=== PATIENT | male | born 1970 | race Caucasian/White ===

== ENCOUNTER 2024-07-17 07:59 | Outpatient (RCR) | payer OTHER, SELFPAY ==
--- NOTE | 2024-07-17 09:01 | CTCFLWUP_ITS ---
[facility] [address] [place], [place] [address] FOLLOW-UP NOTE Date: 07/17/2024 MR#: [id number] Name: NAINA SANTIAGO : 1970 Dx: C82.60 Cutaneous follicle center lymphoma, unspecified site Identification. 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 Following surgical excision received postoperation therapy 3000 cGy to the main site with 2000 centig ray boost to the adjacent area. 11/12/2023 PET showed no evidence of interval adenopathy or new suspicious sites. Recently had fine-needle aspiration of growth in low neck area ordered by Talisha Dolan PA-C. There was no evidence of lymphoma and limited specimen. As I see patient today, the site of biopsy appears to be about same size about 0.5 cm in diameter. I will order PET scan before next visit in 3 months. Electronically signed by: Hansel Linda M.D. 07/17/2024 8:59 AM
== END 2024-08-12 23:59 | disposition home or self-care (01) ==
LOC: SCTC 07:59
PROVIDERS: PCP Nurse Practitioner Family; Referring Provider Nurse Practitioner Family; Visit Provider Radiology Therapeutic Radiology
DX: C82 Follicular lymphoma (principal)
CPT/HCPCS: 99213; G0463

== ENCOUNTER → 2024-07-31 | Outpatient (CLI) | payer OTHER, SELFPAY ==
--- NOTE | 2024-07-31 08:45 | XR_ITS ---
EXAMINATION: PET/CT FUSION SKULL TO THIGH EXAM DATE AND TIME: July 31, 2024 0921 hours Comparison November 12, 2023 INDICATIONS: Diagnosis lymphoma post treatment restaging CTDI:vol (mGy) 13.45 DLP: (mGycm) 1395 PROCEDURE: 15.84 mCi FDG was administered intravenously To allow for distribution and uptake of radiotracer, the patient was allowed to rest quietly in a shielded room. Imaging was performed on an integrated 16-slice PET/CT scanner, with scanning from the skull base to the mid thigh. Serum blood glucose at the time of the injection was measured 94 mg/dL. CT scanning was performed without oral or intravenous contrast material. FINDINGS: Head and Neck: There is no nadiya hypermetabolism in the neck. The visualized portions of the brain are normal in appearance on CT. Chest: There is no nadiya hypermetabolism in the chest. There are no pulmonary nodules. Abdomen and Pelvis: There is no nadiya hypermetabolism in retroperitoneal or pelvic chains. The spleen is normal in size and FDG avidity. Musculoskeletal: Marrow uptake is within normal range. IMPRESSION: No interval hypermetabolic lymphadenopathy
== END | disposition home or self-care (01) ==
LOC: CDIM 08:24
PROVIDERS: PCP Family Medicine; Referring Provider Radiology Therapeutic Radiology; Visit Provider Radiology Therapeutic Radiology
DX: C82.80 Other types of follicular lymphoma, unspecified site (principal)
CPT/HCPCS: 78815; A9552

== ENCOUNTER 2024-09-14 09:16 | Emergency (ER) | payer OTHER, SELFPAY ==
[2024-09-14 09:16] VITALS: BMI 42.8
--- NOTE | 2024-09-14 09:22 | EKG_ITS ---
[facility] Test Date: 2024-09-14 Pat Name: NAINA SANTIAGO Department: Room: - Gender: Male Research Group Director: : 1970 Requested By: Adelfo Carreon (ADRY) Order Number: [id number] Reading MD: Adelfo Carreon (FAMILY LAWYER) Measurements Intervals [place] Rate: 67 P: 15 MS: 148 QRS: -5 QRSD: 89 T: 12 QT: 375 QTc: 397 Interpretive Statements SINUS RHYTHM VOLTAGE CRITERIA FOR LVH [MEETS CRITERIA IN ONE OF: R(aVL), S(V1), R(V5), R(V5/V6)+S(V1)] Compared to ECG 12/26/2022 08:00:28 No significant changes /store/S0/[id number]/ecg/[id number].pdf
[2024-09-14 09:29] VITALS: BP 140/98; PULSE 69; RESP 19; TEMP 37.3; O2SAT 97
--- NOTE | 2024-09-14 09:34 | XR_ITS ---
Examination: PA lateral chest 2 views Technique: Upright PA lateral chest 2 views Exam date and time: September 14, 2024 1022 hrs. Indications: Shortness of breath chest pain today Findings: Normal heart size No pneumonia or pulmonary edema. The osseous structures are intact Impression: No active disease
--- NOTE | 2024-09-14 09:35 | PD.EDRME ---
Rapid Medical Screening Exam RME Arrival date/time: 09/14/24 09:16 54-year-old male presents to the emergency department complains of left side abdominal pain and chest pain ongoing x 1 week Chief Complaint: Chest Pain Time Seen by Provider: 09/14/24 09:22 Vital signs: Vital Signs Temperature 99.1 F 09/14/24 09:29 Pulse Rate 69 09/14/24 09:29 Respiratory Rate 19 09/14/24 09:29 Blood Pressure 140/98 H 09/14/24 09:29 Pulse Oximetry (%) 97 09/14/24 09:29 Oxygen Delivery Method Room Air 09/14/24 09:29
[2024-09-14 09:56] LABS: Basophils # (Auto) 0.1 Thou/mm3 (0.0-0.2); Basophils % (Auto) 1 % (0-2.5); Eosinophils # (Auto) 0.2 Thou/mm3 (0.0-0.5); Eosinophils % (Auto) 2 % (0-10); Hematocrit 43.9 % (41.0-53.0); Hemoglobin 15.2 g/dL (13.5-16.0); Immature Granulocytes % (Auto) 0 % (0-0); Immature Granulocytes Auto 0.01 Thou/mm3 (0.00-0.00); Lymphocytes % (Auto) 15 % (10-50); Mean Corpuscular HGB Conc 34.6 g/dl (31.0-37.0); Mean Corpuscular Hemoglobin 30.3 pg (25.0-35.0); Mean Corpuscular Volume 88 fL (80-100); Monocytes # (Auto) 0.5 Thou/mm3 (0.0-0.8); Monocytes % (Auto) 8 % (0-12); Neutrophils # (Auto) 5.1 Thou/mm3 (1.8-7.7); Neutrophils % (Auto) 74 % (37-80); Nucleated Red Blood Cell % 0 /100 WBC (0); Platelet Count 209 Thou/mm3 (140-440); RDW Standard Deviation 42.3 fL (35.1-43.9); Red Blood Count 5.01 Miln/mm3 (4.50-5.90); White Blood Count 6.9 Thou/mm3 (3.8-10.6)
[2024-09-14 10:13] LABS: B-Type Natriuretic Peptide 70 pg/mL (0-100)
[2024-09-14 10:16] LABS: Alanine Aminotransferase 25 U/L (10-49); Albumin, Serum 4.4 gm/dL (3.5-5.0); Albumin/Globulin Ratio 1.6 (1.2-2.2); Alkaline Phosphatase 92 U/L (46-116); Anion Gap 6 (7-16); Aspartate Amino Transferase 20 U/L (0-34); BUN/Creatinine Ratio 12 Ratio (12-20); Bilirubin,Total 0.7 mg/dL (0.3-1.2); Blood Urea Nitrogen 11 mg/dL (9-23); Calcium 9.1 mg/dL (8.3-10.6); Calcium (Corrected) 9.1 mg/dL (8.5-10.1); Carbon Dioxide 28.9 mMol/L (20.0-31.0); Chloride 105 mMol/L (98-107); Creatinine (Component) 0.9 mg/dL (0.6-1.3); Estimated Creatinine Clearance 129.1 mL/min (>60); Globulin 2.7 gm/dL (2.3-3.5); Glucose 96 mg/dL (74-106); Lipase 34 U/L (12-53); Osmolality,Calculated 278 (275-295); Potassium 4.2 mMol/L (3.4-5.1); Sodium 140 mMol/L (136-145); Total Protein 7.1 gm/dL (5.7-8.2); Troponin I < 0.002 ng/mL (0.0-0.045); eGFR > 60 See Note
[2024-09-14 10:17] LABS: Collection Type, Urine Clean Catch; Squamous Epithelial Cell,Urine 0 /hpf (0-5)
[2024-09-14 10:20] LABS: Bilirubin,Urine Negative (Negative); Blood,Urine Negative (Negative); Clarity,Urine Clear (Clear/Hazy); Color,Urine Yellow (Lt Yel-Yel); Glucose, Urine Negative (Negative); Hyaline Casts,Urine < 1 /hpf (0-1); Ketones,Urine Negative (Negative); Leukocyte Esterase,Urine Negative (Negative); Nitrite,Urine Negative (Negative); PH,Urine 6.5 (5.0-7.0); Protein,Urine Trace (Neg - Trace); RBC,Urine 4 /hpf (0-3); Specific Gravity,Urine 1.025 (1.001-1.035); Urobilinogen,Urine Negative mg/dL (0.0-1.0); WBC,Urine 1 /hpf (0-5)
[2024-09-14 13:47] VITALS: BP 148/96; PULSE 57; RESP 18; TEMP 36.9; O2SAT 99
[2024-09-14 14:59] VITALS: BP 146/99; PULSE 53; RESP 14; TEMP 36.4; O2SAT 97
[2024-09-14 15:18] LABS: Troponin I < 0.002 ng/mL (0.0-0.045)
--- NOTE | 2024-09-14 15:44 | XR_ITS ---
Examination: CT abdomen with intravenous contrast CT pelvis with intravenous contrast 2-D coronal reconstructions 2-D sagittal reconstructions Date and time of exam:September 14, 2024 1723 hours Comparison September 28, 2023 INDICATIONS: Several right lower abdominal pain beginning one week ago CTDI: vol (mGy) 20.9 DLP: (mGycm) 1333 Technique: Multiple axial sections of the abdomen and pelvis have been obtained. 64 slice high-resolution scanner used. 3 mm axial sections have been obtained, post intravenous injection 60 cc [id number] 2-D sagittal, coronal reconstructions obtained. Low dose protocols were performed. One or more of the following dose reduction techniques were used; automated exposure control, adjustment of the mA and/or KV according to patient size, use of iterative reconstruction technique. Findings: No focal liver or splenic lesions Hepatomegaly 23 cm, splenomegaly AP dimension 14 cm No gallstones No pancreatic edema or mass No renal or ureteral calculi, no hydronephrosis Aorta normal size Normal appendix No bowel obstruction Colonic diverticulosis No bladder mass or bladder calculi No prostatomegaly The osseous structures are intact IMPRESSION: Hepatosplenomegaly No renal or ureteral calculi, no hydronephrosis Normal appendix Colonic diverticulosis, no diverticulitis
--- NOTE | 2024-09-14 17:21 | PD.EDADULT ---
ED General RME/HPI General Chief complaint: Chest Pain Stated complaint: CHEST PAIN Time Seen by Provider: 09/14/24 09:22 Arrival date/time: 09/14/24 09:16 RME / HPI RME / HPI narrative: 09/14/24 09:16 RME: 54-year-old male presents to the emergency department complains of left side abdominal pain and chest pain ongoing x 1 week ARCHANA HPI: 54-year-old male with a history of gastric sleeve, CHF, who presents to the emergency department with approximately 30 hours of initially left sided abdominal pain now in his epigastric and chest region. He has decreased appetite. No diarrhea or constipation. He notes a week ago after eating spaghetti he had epigastric pain and chest pain at that time without left lower quadrant pain. This resolved after a day and seeing his primary care doctor (Dr. Ashley Broderick) and had a normal diet. This was not until last night where he has had persistent abdominal pain, notes persistent anorexia. He does not have hunger right now. He denies fevers chills or sweats. Pain in his left lower quadrant started yesterday evening and persisted through the night. By the morning, he noticed that the left lower quadrant pain had improved however he started developing epigastric and chest pain. He describes it as a burning sensation or even a tight pressure sensation. There is no associated shortness of breath or nausea or diaphoresis with it. Through the course of the day the epigastric chest pain in the left lower quadrant pain has persisted with only the left lower quadrant pain improving mildly. Related Data Home Medications ?Medication ?Instructions ?Recorded ?Confirmed multivitamin 1 tab PO QDAY 11/14/20 04/09/24 omeprazole 20 mg capsule,delayed 20 mg PO QDAY 11/14/20 04/09/24 release vitamin B12 0.5 mg-folic acid 1 mg 1 tab PO QDAY 11/14/20 04/09/24 tablet cetirizine 10 mg tablet 10 mg PO QDAY PRN Allergy Symptoms 12/26/22 04/09/24 furosemide 20 mg tablet (Lasix) 20 mg PO QAM 03/05/23 04/09/24 potassium chloride 10 mEq 10 meq PO QDAY 03/05/23 04/09/24 tablet,extended release(part/cryst) ascorbic acid (vitamin C) 500 mg 500 mg PO QDAY 07/24/23 04/09/24 capsule,extended release (Vitamin C) calcium citrate 1,000 mg tablet 1,000 mg PO QDAY 07/24/23 04/09/24 zinc 25 mg tablet 25 mg PO DAILY 07/24/23 04/09/24 Previous Rx's ?Medication ?Instructions ?Recorded hydrocortisone 2.5 % topical cream 1 applic AK QD-BID PRN pain #30 05/01/24 with perineal applicator grams (Anusol-HC) Allergies Allergy/AdvReac Type Severity Reaction Status Date / Time No Known Allergies Allergy Verified 04/09/24 10:08 Review of Systems Review of Systems Systems Reviewed: All systems reviewed, normal except as documented ED Exam Narrative Physical exam: GENERAL APPEARANCE: AxOx4, generally well-appearing, no acute distress. HEENT: NC, AT. MMM. EOMI, clear conjunctiva, oropharynx clear. NECK: Supple without lymphadenopathy. No stiffness or restricted ROM. HEART: Normal rate and regular rhythm, normal S1/S1, no m/r/g LUNGS: CTAB, moving air well. No crackles or wheezes are heard. ABDOMEN: Soft, positive right lower quadrant tenderness, positive Rovsing sign, no epigastric pain, no right upper quadrant pain, negative Khan sign, nondistended with good bowel sounds heard. BACK: No midline C/T/L spine pain or deformity, No CVAT, no obvious deformity. EXTREMITIES: Without cyanosis, clubbing or edema. MUSCULOSKELETAL: FROM of all major joints, no chest tenderness NEUROLOGICAL: Grossly nonfocal. Alert and oriented, moving all 4 extremities. CN not formally tested but appear grossly intact. Observed to ambulate with normal gait. Skin: Warm and dry without any rash. Course Quality Measures none Orders Category Date Time Status CT Screening NOW Care 09/14/24 15:44 Active EKG (ED ONLY) *Do not use* NOW Care 09/14/24 09:[address] abdomen pelvis w con Stat Exams 09/14/24 15:44 Ordered EKG (ED Only) Stat Exams 09/14/24 09:22 Draft XR chest 2V Stat Exams 09/14/24 09:34 Completed B-Type Natriuretic Peptide Stat Lab 09/14/24 09:46 Completed CBC Stat Lab 09/14/24 09:46 Completed Comprehensive Metabolic Panel Stat Lab 09/14/24 09:46 Completed Lipase Stat Lab 09/14/24 09:46 Completed Troponin I Stat Lab 09/14/24 09:46 Completed Troponin I Stat Lab 09/14/24 14:50 Completed Urinalysis Stat Lab 09/14/24 10:02 Completed Vital Signs Vital signs: Vital Signs Temperature 99.1 F 09/14/24 09:29 Pulse Rate 69 09/14/24 09:29 Respiratory Rate 19 09/14/24 09:29 Blood Pressure 140/98 H 09/14/24 09:29 Pulse Oximetry (%) 97 09/14/24 09:29 Oxygen Delivery Method Room Air 09/14/24 09:29 SpO2 97% on room air, patient is not hypoxic Procedures -ED EKG Interpretation #1: Date of EK09/14/24 Time of EK: Rate: 67 Interpretation: Interpreted by me EKG Impression: Normal sinus rhythm, No acute ST-T changes, Normal intervals and Normal axis MDM Patient data External records reviewed:: [facility] previous records Clinical information provided by:: patient Social determinants that could affect healthcare access:: none Patient has the following chronic illnesses:: None How is presenting disease/condition affected by chronic disease/condition?: uneffected by Evaluation data The following diagnostics were reviewed and interpreted by me:: lab results and radiology exam(s) Lab and/or radiology exams considered but not ordered:: Chest x-ray my interpretation shows no acute cardiopulmonary process, no cardiomegaly, no bony abnormalities, I have reviewed the radiology interpretation. Interpretation Summary: None Medications Medications considered but not ordered:: None Medication administrations:: Above Consultations Consultation(s) initiated? (list below): No Diagnosis Differential Diagnosis ED Complaint MDM: ACS, AMI, acute appendicitis, colitis Most likely diagnosis given after review of the tests above:: Workup pending Admission Indicated Admission indicated?: not indicated (Workup pending) Explain why admission is indicated or not indicated:: Workup pending Admission Request Was there a request for admission?: No Admission Attestation Admission request attestation: Workup pending Disposition Plan Disposition Plan: other (specify) (Signed out to oncoming provider pending CT results and final disposition) Medical Decision Making MDM Narrative MDM Narrative: Mr. Mandel presents to the emergency department with vague migratory pain involving the left lower quadrant and the chest by report. However on exam most significant is he has right lower quadrant tenderness and even possibly a Khan sign when pressing on his left lower quadrant. He has no rebound or guarding. He does have persistent anorexia. Laboratory testing sent via the E process shows no acute findings significant for a normal white blood cell count. He is also afebrile. However given his anorexia and right lower quadrant pain on exam I do feel that he would benefit from a CT scan of the abdomen in case his symptoms vague and upper are consistent with visceral pain in the early phases of an acute appendicitis. He does not appear to be in the somatic phase of appendicitis nor an the perforation phase. His chest pain is of low suspicion for cardiac ischemia, EKG shows no signs of acute ischemia and troponin x 2 are negative. Heart score of 1 he is appropriate for outpatient follow-up with this. He is pending CT scan of the abdomen to rule out acute appendicitis if negative I do feel he is okay to go home. Signed out to oncoming provider pending results of the CT and final disposition. Differential Diagnosis Differential Diagnosis: ACS, AMI, acute appendicitis, colitis Lab Data 09/14/24 09:46 09/14/24 09:46 Labs: Lab Results 09/14/24 09/14/24 09/14/24 Range/Units 09:46 10:02 14:50 WBC 6.9 (3.8-10.6) Thou/mm3 RBC 5.01 (4.50-5.90) Miln/mm3 Hgb 15.2 (13.5-16.0) g/dL Hct 43.9 (41.0-53.0) % MCV 88 (80-100) fL MCH 30.3 (25.0-35.0) pg MCHC 34.6 (31.0-37.0) g/dl RDW Std Deviation 42.3 (35.1-43.9) fL Plt Count 209 (140-440) Thou/mm3 Neut % (Auto) 74 (37-80) % Lymph % (Auto) 15 (10-50) % [place] % (Auto) 8 (0-12) % Eos % (Auto) 2 (0-10) % Baso % (Auto) 1 (0-2.5) % Neut # (Auto) 5.1 (1.8-7.7) Thou/mm3 Lymph # (Auto) 1.0 (1.0-4.8) Thou/mm3 [place] # (Auto) 0.5 (0.0-0.8) Thou/mm3 Eos # (Auto) 0.2 (0.0-0.5) Thou/mm3 Baso # (Auto) 0.1 (0.0-0.2) Thou/mm3 Immature Gran # (Auto) 0.01 H (0.00-0.00) Thou/mm3 Absolute Nucleated RBC 0.00 (0.00-0.00) Thou/mm3 Immature Gran % 0 (0-0) % Nucleated RBC % 0 (0) /100 WBC Sodium 140 (136-145) mMol/L Potassium 4.2 (3.4-5.1) mMol/L Chloride 105 (98-107) mMol/L Carbon Dioxide 28.9 (20.0-31.0) mMol/L Anion Gap 6 L (7-16) BUN 11 (9-23) mg/dL Creatinine 0.9 (0.6-1.3) mg/dL Estim Creat Clear Calc 129.1 (>60) mL/min eGFR > 60 (60 - ) See Note BUN/Creatinine Ratio 12 (12-20) Ratio Glucose 96 (74-106) mg/dL Calculated Osmolality 278 (275-295) Calcium 9.1 (8.3-10.6) mg/dL Corrected Calcium 9.1 (8.5-10.1) mg/dL Total Bilirubin 0.7 (0.3-1.2) mg/dL AST 20 (0-34) U/L ALT 25 (10-49) U/L Alkaline Phosphatase 92 (46-116) U/L Troponin I < 0.002 < 0.002 (0.0-0.045) ng/mL B-Natriuretic Peptide 70 (0-100) pg/mL Total Protein 7.1 (5.7-8.2) gm/dL Albumin 4.4 (3.5-5.0) gm/dL Globulin 2.7 (2.3-3.5) gm/dL Albumin/Globulin Ratio 1.6 (1.2-2.2) Lipase 34 (12-53) U/L Ur Collection Type Clean Catch Urine Color Yellow (Lt Yel-Yel) Urine Clarity Clear (Clear/Hazy) Urine pH 6.5 (5.0-7.0) Ur Specific [place] 1.025 (1.001-1.035) Urine Protein Trace (Neg - Trace) Urine Glucose (UA) Negative (Negative) Urine Ketones Negative (Negative) Urine Blood Negative (Negative) Urine Nitrite Negative (Negative) Urine Bilirubin Negative (Negative) Urine Urobilinogen (Auto) Negative (0.0-1.0) mg/dL Ur Leukocyte Esterase Negative (Negative) Urine RBC 4 H (0-3) /hpf Urine WBC 1 (0-5) /hpf Ur Squamous Epith Cells 0 (0-5) /hpf Urine Bacteria None (None) Hyaline Casts < 1 (0-1) /hpf Discharge Plan Prescriptions/Referrals Prescriptions/Med Rec: No Action hydrocortisone [Anusol-HC] 2.5 % cream with perineal applicator 1 applic AK QD-BID PRN (Reason: pain) Qty: 30 0RF omeprazole 20 mg Capsule,Delayed Release(Dr/Ec) 20 mg PO QDAY multivitamin Tablet,Chewable 1 tab PO QDAY vitamin B55-xkdmm acid 0.5-1 mg Tablet 1 tab PO QDAY zinc 25 mg Tablet 25 mg PO DAILY ascorbic acid (vitamin C) [Vitamin C] 500 mg Capsule, Extended Release 500 mg PO QDAY calcium citrate 1,000 mg Tablet 1,000 mg PO QDAY cetirizine 10 mg Tablet 10 mg PO QDAY PRN (Reason: Allergy Symptoms) furosemide [Lasix] 20 mg Tablet 20 mg PO QAM potassium chloride 10 mEq Tablet,Er Particles/Crystals 10 meq PO QDAY Referrals: Jimena Pérez GATE SHEAR OPERATOR [Primary Care Provider] - In 1 week Problem List Clinical Impression: Abdominal pain, acute, right lower quadrant, Chest pain Patient/Caregiver Discharge Instructions Print Language: Serbian
--- NOTE | 2024-09-14 18:32 | PD.EDADDENDU ---
Emergency Room Addendum Addendum Narrative: 1800: Care assumed from Dr. Johnson, the previous shift emergency physician. Past medical, surgical, social and family history reviewed. Vitals and home medications reviewed. I will assume the care of the patient at this time, pending CT read. Please refer to the emergency department record for initial H&P and ED course. Physical exam by me shows patient under no acute distress at this time. Patient is comfortable, sleeping. Pain 1 out of 10 in severity. MDM The following diagnostics were reviewed and interpreted by me: radiology exam(s) Interpretation Summary: I personally reviewed the radiology data and agree with the radiologist's interpretation. Examination: CT abdomen with intravenous contrast, CT pelvis with intravenous contrast Date and time of exam:September 14, 2024 1723 hours Comparison September 28, 2023 INDICATIONS: Several right lower abdominal pain beginning one week ago Findings: No focal liver or splenic lesions Hepatomegaly 23 cm, splenomegaly AP dimension 14 cm No gallstones No pancreatic edema or mass No renal or ureteral calculi, no hydronephrosis Aorta normal size Normal appendix No bowel obstruction Colonic diverticulosis No bladder mass or bladder calculi No prostatomegaly The osseous structures are intact IMPRESSION: Hepatosplenomegaly No renal or ureteral calculi, no hydronephrosis Normal appendix Colonic diverticulosis, no diverticulitis Dictated By: Fred Dejesus MD Discharge Plan Plan Patient Disposition: HOME (Self Care) Patient condition on transfer: Stable MD Attestation Attestation Scribe Attestation: I, Beth Navarro, am scribing for and in the presence of Dr. Alvarez. Provider Notation: Although this document has been carefully reviewed, there may still be some phonetic and other typographical errors. These errors are purely grammatical due to imperfections in the software program and should not be construed in any way to compromise the substance of the patient's medical care during this visit.
[2024-09-14 18:41] VITALS: BP 127/88; PULSE 55; RESP 16; TEMP 36.7; O2SAT 97
--- NOTE | 2024-09-14 20:45 | PC.NURSE ---
informed dr reyna patient wants to leave
[2024-09-14 21:54] VITALS: BP 128/89; PULSE 63; RESP 18; TEMP 36.4; O2SAT 99
== END 2024-09-14 21:54 | disposition home or self-care (01) ==
PROVIDERS: Emergency Medicine; Nurse Practitioner Primary Care; Emergency Provider Emergency Medicine; PCP Nurse Practitioner Family
DX: R10.31 Right lower quadrant pain (principal); R07.9 Chest pain, unspecified; Z98.84 Bariatric surgery status; I50.9 Heart failure, unspecified
CPT/HCPCS: 36415; 71046; 74177; 80053; 81001; 83690; 83880; 84484; 85025; 93005; 99284; A4649; Q9967

== ENCOUNTER → 2024-09-17 | Outpatient (CLI) | payer OTHER, SELFPAY ==
[2024-09-17 11:15] LABS: Urea Breath Test Negative (Negative)
== END | disposition home or self-care (01) ==
LOC: COPL 08:30
PROVIDERS: PCP Family Medicine; Referring Provider Nurse Practitioner Family; Visit Provider Nurse Practitioner Family
DX: K21.9 Gastro-esophageal reflux disease without esophagitis (principal)
CPT/HCPCS: 83013; 83014

== ENCOUNTER → 2024-10-13 | Outpatient (CLI) | payer OTHER, SELFPAY ==
[2024-10-13 15:47] LABS: Anion Gap 9 (7-16); BUN/Creatinine Ratio 16 Ratio (12-20); Blood Urea Nitrogen 14 mg/dL (9-23); Carbon Dioxide 25.2 mMol/L (20.0-31.0); Chloride 107 mMol/L (98-107); Creatinine (Component) 0.9 mg/dL (0.6-1.3); Glucose 98 mg/dL (74-106); Osmolality,Calculated 281 (275-295); Potassium 4.4 mMol/L (3.4-5.1); Sodium 141 mMol/L (136-145); eGFR > 60 See Note
== END | disposition home or self-care (01) ==
LOC: COPL 14:55
PROVIDERS: PCP Family Medicine; Referring Provider Nurse Practitioner Family; Visit Provider Nurse Practitioner Family
DX: I10 Essential (primary) hypertension (principal)
CPT/HCPCS: 36415; 80048

== ENCOUNTER 2024-10-16 08:05 | Outpatient (RCR) | payer OTHER, SELFPAY ==
--- NOTE | 2024-10-16 09:01 | CTCFLWUP_ITS ---
[facility] [address] [place], [place] [address] FOLLOW-UP NOTE Date: 10/16/2024 MR#: [id number] Name: NAINA SANTIAGO : 1970 Dx: C82.60 Cutaneous follicle center lymphoma, unspecified site Identification. 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 Following surgical excision received postoperation therapy 3000 cGy to the main site with 2000 cGy boost to the adjacent area. Completed 07/02/2023. 11/12/2023 PET showed no interval lymphadenopathy compared to prior PET. FNA of growth in low neck area 05/22/2024 ordered by Talisha Dolan PA-C showed no evidence of any malignancy. 07/31/2024 PET showed no evidence of interval adenopathy or new suspicious sites. examined patient's neck and left groin area showed no sign of any recurrence. Assessment. cutaneous follicular lymphoma B-cell type left posterior thigh. No sign of any recurrence or active disease clinically or radiographically. Will see patient again in 6 months. Electronically signed by: Hansel Linda M.D. 10/16/2024 8:59 AM
== END 2024-11-10 23:59 | disposition home or self-care (01) ==
LOC: SCTC 08:05
PROVIDERS: PCP Family Medicine; Referring Provider Family Medicine; Visit Provider Radiology Therapeutic Radiology
DX: Z08 Encounter for follow-up examination after completed treatment for malignant neoplasm (principal); Z85.72 Personal history of non-Hodgkin lymphomas; Z92.3 Personal history of irradiation
CPT/HCPCS: 99213; G0463

== ENCOUNTER 2024-11-20 08:25 | Day surgery (SDC) | payer OTHER, SELFPAY ==
[2024-11-14 07:39] VITALS: BMI 43.1
[2024-11-14 08:48] LABS: Basophils # (Auto) 0.1 Thou/mm3 (0.0-0.2); Basophils % (Auto) 1 % (0-2.5); Eosinophils # (Auto) 0.2 Thou/mm3 (0.0-0.5); Eosinophils % (Auto) 4 % (0-10); Hematocrit 43.6 % (41.0-53.0); Hemoglobin 14.8 g/dL (13.5-16.0); Immature Granulocytes % (Auto) 0 % (0-0); Immature Granulocytes Auto 0.02 Thou/mm3 (0.00-0.00); Lymphocytes % (Auto) 16 % (10-50); Mean Corpuscular HGB Conc 33.9 g/dl (31.0-37.0); Mean Corpuscular Volume 88 fL (80-100); Monocytes # (Auto) 0.5 Thou/mm3 (0.0-0.8); Monocytes % (Auto) 8 % (0-12); Neutrophils # (Auto) 4.8 Thou/mm3 (1.8-7.7); Neutrophils % (Auto) 72 % (37-80); Nucleated Red Blood Cell % 0 /100 WBC (0); Platelet Count 210 Thou/mm3 (140-440); RDW Standard Deviation 42.8 fL (35.1-43.9); Red Blood Count 4.93 Miln/mm3 (4.50-5.90); White Blood Count 6.6 Thou/mm3 (3.8-10.6)
[2024-11-14 08:55] LABS: Partial Thromboplastin Time 25.7 Seconds (22.0-36.0); Prothrombin Time 11.2 Seconds (9.0-12.2)
[2024-11-14 09:02] LABS: Alanine Aminotransferase 23 U/L (10-49); Albumin, Serum 4.3 gm/dL (3.5-5.0); Albumin/Globulin Ratio 1.7 (1.2-2.2); Alkaline Phosphatase 79 U/L (46-116); Anion Gap 8 (7-16); Aspartate Amino Transferase 24 U/L (0-34); BUN/Creatinine Ratio 13 Ratio (12-20); Bilirubin,Total 0.6 mg/dL (0.3-1.2); Blood Urea Nitrogen 12 mg/dL (9-23); Calcium 9.5 mg/dL (8.3-10.6); Calcium (Corrected) 9.5 mg/dL (8.5-10.1); Chloride 106 mMol/L (98-107); Creatinine (Component) 0.9 mg/dL (0.6-1.3); Estimated Creatinine Clearance 129.6 mL/min (>60); Globulin 2.6 gm/dL (2.3-3.5); Glucose 74 mg/dL (74-106); Osmolality,Calculated 285 (275-295); Potassium 4.4 mMol/L (3.4-5.1); Sodium 144 mMol/L (136-145); Total Protein 6.9 gm/dL (5.7-8.2); eGFR > 60 See Note
--- NOTE | 2024-11-19 12:37 | SUR.PREOP ---
Pt notified to come in at 0830 tomorrow for surgery.
--- NOTE | 2024-11-19 13:56 | SUR.PREOP ---
Cardiac records reviewed with Dr Miller.
[2024-11-20] VITALS (15 sets, daily range): BP systolic 136–159; BP diastolic 74–101; PULSE 55–65; RESP 13–20; TEMP 36.2–36.9; O2SAT 88–100; BMI 43.2
[2024-11-20] MEDS: RINGERS LACTATED 1000 ML 1,000 ML 20 ML IV (09:02)
--- NOTE | 2024-11-20 11:59 | ESOP_ITS ---
Date of Procedure 11/20/24 Pre Op Diagnosis Symptomatic varicose veins right lower extremity Post Op Diagnosis Same as preop diagnosis Procedure Radiofrequency endovenous ablation of the greater saphenous vein right lower extremity Varicose vein excisions right lower extremity with 61 separate incisions Findings All marked veins were successfully removed were disrupted Procedure Description With the patient standing in the preop area or varicose veins removed were carefully marked with a sharpie pen. The patient was then brought to the operating room and laryngeal mask anesthesia was established. The right lower extremity sterilely prepped and draped. A timeout was performed. The radiofrequency ablation was performed first bite mapping out the course of the greater saphenous vein between the knee and the saphenofemoral junction. The greater saphenous vein itself was serpiginous with multiple duplications and despite successful access multiple times using ultrasound and a 21-gauge mini stick needle a guidewire could not be passed successfully. Starting to scan from the saphenofemoral junction down there was a parallel saphenous vein with along the trunk and no duplication or sidebranches which was successfully accessed and a 7 Wolof sheath introducer was placed. The ablation catheter was then brought to the field prepped placed into the patient with the tip carefully positioned 7 cm distal to the saphenofemoral junction. Tumescent anesthesia was then instilled along the length of the greater saphenous vein to be treated. Catheter tip position was once again ensured to be 3 to 5 cm distal to the junction. Under direct ultrasound compression the catheter was activated with 2 cycles approximately 1 additional cycle down the leg. The saphenofemoral junction was then inspected and is found to be patent, compressible with good augmentation and no evidence of thrombus in either the SAP femoral junction or the common femoral vein. The varicose vein excisions were performed next by making a small skin rigoberto in the marked areas with a #11 blade then widen that incision with a small mosquito clamp then grasping the veins then sequentially excised and are just ruptured then with either the Jada clamp or a vein hook. After all veins were successfully removed are disrupted and hemostasis was obtained and the wounds the leg was cleaned and the incisions were reapproximated with Steri-Strips. Sterile gauze followed by a Kerlix wrap were then placed followed by an Santosh wrap. The patient woke up from anesthesia was moved to recovery in stable condition Anesthesia other (Laryngeal mask anesthesia) Pathology / specimen Other (Right leg varicose veins) Estimated Blood Loss 75 Condition Stable Disposition PACU Surgeon Jose Sidhu MD Surgical Staff Operation Date: 11/20/24 10:30 Case Staff CHILDREN'S TUTOR: Jessie Gonzalez RN First Assistant: Gia Morgan
--- NOTE | 2024-11-20 12:14 | SUR.PHASEI ---
1214 Patient arrived to recovery resting comfortably in [facility], on oxygen 8L via oxy mask, breathing unlabored, vital signs stable, denies pain, dressing intact to right lower extremity; steri-strips, abd, kerlix roll, sabino wraps, no bleeding noted, patient has good circulation to right lower extremity; skin color normal for patient and warm to touch, capillary refill is one second to right toes, report received from Jessie MOSQUEDA and Asif PACK
--- NOTE | 2024-11-20 12:34 | SUR.PHASEI ---
1234 Report given to Yenni PACK
--- NOTE | 2024-11-20 12:34 | SUR.PHASEI ---
1234: received report from SIRENA Ruth. pt sleeping at this time. no s/s of resp. distress or discomfort. no s/s of pain or discomfort. dressing to right leg clean, dry and intact. positive CMS to right lower extremity: postive pulse, cap refill less than 2 seconds and able to wiggle right toes.
[2024-11-20] MEDS: fentaNYL CIT INJ 50 mCg/ML AMP 2ML IV (12:55)
--- NOTE | 2024-11-20 12:59 | SUR.PHASEII ---
1259: pt tolerate drinking fluid well.
[2024-11-20] MEDS: HYDROmorphone INJ 2 MG/ML VIAL 0.5 MG IVP (13:05)
--- NOTE | 2024-11-20 13:10 | SUR.PHASEII ---
1310 Report received from Yenni PACK
--- NOTE | 2024-11-20 13:10 | SUR.PHASEII ---
1310: report given to SIRENA Skinner. pt alert and oriented to name, place and time. no s/s of resp. distress or discomfort. dressing to right lower extremity clean, dry and intact. no bleeding noted. positive CMS: positive pulse, cap refill less than 2 seconds and able to wiggle toes.
--- NOTE | 2024-11-20 13:34 | SUR.PHASEII ---
patient working with incentive spirometer, oxygen dropping into 80s, will continue to work with patient
--- NOTE | 2024-11-20 14:00 | SUR.PHASEII ---
1400 patient oxygen continuing to decrease when his is drifting to sleep, he is easily arouse, and prompted to take deep breaths, however continues to be drowsy and oxygen level decreasing to 88%-90% notified Jessie MOSQUEDA, made aware working with patient using incentive spirometer, will continue, no new orders at this time, will monitor patient
--- NOTE | 2024-11-20 14:37 | SUR.PHASEII ---
1437 Patient oxygen level within normal limits, awake and alert, patient educated to continue to use incentive spirometer at home and per anesthesia provider to follow up with PCP, patient also shared he has a history of sleep apnea, however does not have a CPAP machine at home, this information was given to anesthesia provider, she is aware and encourage patient to sit up while sleeping and use incentive spirometer at home, will proceed with discharging patient
--- NOTE | 2024-11-20 14:43 | SUR.PHASEII ---
1443 Patient meets discharge criteria from recovery, awake and alert, breathing unlabored, vital signs stable, denies pain, dressing intact; no bleeding noted, patient ate a jello and drinking water; denies nausea, patient assisted with dressing into his clothing by this short story writer, discharge instructions given to patient and patients brother, brother signed discharge instructions. Patient given all her belongings prior to discharge, transported via wheelchair and left in a private vehicle.
== END 2024-11-20 14:43 | disposition home or self-care (01) ==
PROVIDERS: Anesthesiology; PCP Nurse Practitioner Family; Referring Provider Surgery Vascular Surgery; Visit Provider Surgery Vascular Surgery
PROC: (CPT 36475; principal; 2024-11-20 10:30)
DX: I83.811 Varicose veins of right lower extremity with pain (principal)
CPT/HCPCS: 36475; 37766; 36415; 80053; 85025; 85610; 85730; A4217; C1888; C1894; J0690; J1100; J2250; J2405; J2704; J3010; J3490; J7040; J7050; J7120

== ENCOUNTER → 2024-12-24 | Outpatient (CLI) | payer OTHER, SELFPAY ==
--- NOTE | 2024-12-24 10:30 | XR_ITS ---
Examination: Ultrasound soft tissue extremity right rib cage TECHNIQUE: Grayscale sonographic images soft tissue right rib cage Exam date and time: December 24, 2024 1026 hours INDICATIONS: Palpable lump with pain right ribs one month FINDINGS: Small lymph node at the area concern 6 x 2 x 4 mm IMPRESSION: Small lymph node at the area concern 6 x 2 x 4 mm, recommend 3 month follow-up ultrasound soft tissue
== END | disposition home or self-care (01) ==
LOC: CDIM 10:18
PROVIDERS: PCP Nurse Practitioner Family; Referring Provider Nurse Practitioner Family; Visit Provider Nurse Practitioner Family
DX: R22.9 Localized swelling, mass and lump, unspecified (principal)
CPT/HCPCS: 76604

== ENCOUNTER → 2025-02-25 | Outpatient (CLI) | payer OTHER, SELFPAY ==
--- NOTE | 2025-02-25 11:00 | XR_ITS ---
Examination: Abdomen sonogram, Limited Date and time of exam: February 25, 2025 1040 hours INDICATIONS: Left upper abdomen lobe noticed beginning 14 months ago Technique: Real-time navas scale transabdominal sonographic images of the upper abdomen obtained. Findings: No cystic or solid mass IMPRESSION: No cystic or solid mass
== END | disposition home or self-care (01) ==
PROVIDERS: PCP Nurse Practitioner Family; Referring Provider Nurse Practitioner Family; Visit Provider Nurse Practitioner Family
DX: C85.10 Unspecified B-cell lymphoma, unspecified site (principal); R22.9 Localized swelling, mass and lump, unspecified
CPT/HCPCS: 76705

== ENCOUNTER 2025-03-02 14:26 | Outpatient (AMB) | payer OTHER, SELFPAY ==
[2025-03-02 14:47] VITALS: BP 124/83; PULSE 80; RESP 18; TEMP 36.6; O2SAT 96; BMI 41.5
--- NOTE | 2025-03-02 14:47 | GSCOFFNT_ITS ---
Vital Signs - [facility] 03/02/25 14:47 Height 1.78 m Height Method Measured Weight 131.145 kg Weight Measurement Method Standing Scale BMI 41.5 BP 124/83 Blood Pressure Source Automatic Cuff Blood Pressure Location Left Upper Arm Position Sitting Respiration 18 Pulse 80 Pulse Source Monitor Temp 97.8 F Temp Source Temporal Artery Scan Pulse Oximetry (%) 96 Oxygen Delivery Method Room Air Med/Allergies Allergies & Medications Allergies No Known Allergies Allergy (Verified 03/02/25 14:49) Medication Reconciliation omeprazole 20 mg capsule,delayed release 20 mg PO QDAY 11/14/20 [History Confirmed 03/02/25] vitamin B12 0.5 mg-folic acid 1 mg tablet 1 tab PO QDAY 11/14/20 [History Confirmed 03/02/25] cetirizine 10 mg tablet 10 mg PO QDAY PRN Allergy Symptoms 12/26/22 [History Confirmed 03/02/25] furosemide 20 mg tablet (Lasix) 20 mg PO QAM 03/05/23 [History Confirmed 03/02/25] potassium chloride 10 mEq tablet,extended release(part/cryst) 10 meq PO QDAY 03/05/23 [History Confirmed 03/02/25] ascorbic acid (vitamin C) 500 mg capsule,extended release (Vitamin C) 500 mg PO QDAY 07/24/23 [History Confirmed 03/02/25] calcium citrate 1,000 mg tablet 1,000 mg PO QDAY 07/24/23 [History Confirmed 03/02/25] zinc 25 mg tablet 25 mg PO DAILY 07/24/23 [History Confirmed 03/02/25] ferrous sulfate 325 mg (65 mg iron) tablet (iron) 325 mg PO DAILY 11/14/24 [History Confirmed 03/02/25] MA Intake Visit Data Collection New Patient or Established: Established Patient (seen at [facility] within 3 years) Seen by Clinical Staff ONLY (RN/MA): No Reason for Visit:: REFERRAL FISSURE Pain Present Currently: Yes (BELOW THE ANUS FISSURE) Pain scale:: 4 Pain Scale Used: AguilarConstanceCampos/Numerical Consular Officer Required: No PCP or OBGYN visit in last 3 months: Yes Hx Now: No Do You Feel Safe at Home: Yes Authorities Contacted: N/A Smoking Status Smoking Status: Never smoker Immunization / Flu Flu Vaccine in the Last 12 Months: Yes Flu Vaccine Exclusion Criteria: No Exclusion Criteria Past Medical History Past Medical History NEUROLOGIC: Negative Neurological Disorders or Seizures CARDIAC: Positive Varicose Veins; Negative Cardiac Disorders or Congestive Heart Failure RESPIRATORY: Negative Chronic Obstructive Pulmonary Disease (COPD) or Asthma GASTROINTESTINAL: Positive Gastrointestinal Disorders, Hemorrhoids and Obesity GENITOURINARY: Negative Genitourinary Disorders or Renal Disease ENDOCRINE: Negative Endocrine Disorders, Diabetes Mellitus Type 1 or Diabetes Mellitus Type 2 HEMATOLOGIC: Negative Blood Disorders, Anemia or Sickle Cell Disease OTHER HISTORY: Positive Hospitalization (surgery), Autoimmune Disease, Shingles, Radiation Therapy, Chicken Pox, Measles and Cancer (Lymphoma 2022); Negative Blood Transfusions, Blood Transfusion Reaction or Anesthesia Reactions Family History FAMILY HISTORY: Positive Family Cardiac Disorders and Family Surgery; Negative Family Psychiatric Problems, Family Respiratory Disorders, Family Gastrointestinal Problems, Family Cancer or Family Anesthesia Reaction Surgical History SURGICAL: Positive Gastric Bypass Surgery (Sleeve) Social History SMOKING STATUS: Smoking status: Never smoker ALCOHOL: Alcohol Intake: Never HOUSING: Housing: House HPI HPI Narrative 54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 Pt states he has been having discomfort in the area as well as to the R side of the anus, as well as some blood with wiping. He has been using aquaphor which helps somewhat. Pt did have a colonoscopy 02/2024 which showed only diverticulosis and decreased sphincter tone ROS Review of Systems Systems Reviewed: All systems reviewed, normal except as documented Objective/Exam General General Appearance: alert, cooperative and well groomed Resp Respiratory exam: Absent respiratory distress Rectal Rectal exam: Present other (anterior midline perianal ulceration with white discoloration surrounding, the white areas are somewhat indurated but there is no fluctuance, no areas of firmness, no active bleeding or tenderness) Assessment & Plan Diagnosis / Problem List (1) Radiation dermatitis: Status: Acute Assessment & Plan: 54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 Pt has used hydrocortisone in the past with little to no improvement; I found an [facility] study named below which stated [place] has been shown to improve symptoms so I recommend this to pt Topical treatment of radiation-induced dermatitis: current issues and potential solutions Plan: F/u in 2 mos Office Procedures GNS Level of Care Nursing/Assessment Patient Status: Established Patient Nursing Assessment/Reassesment: Medication Reconciliation, Update PMH in EMR and Vital Signs Coordination of Care: Complex Care and Chronic Disease 1-5, Consent,records obtained, informed consent, Education Simp Pt/Fam, Results/Orders obtained and Staff clarify orders Established Patient Charge Established Patient Point Assignment: 90 Established Patient Point Charge: EP Level 3 (80-115) Patient Portal Questionaires Social History Living Situation History Housing: House Tobacco History Smoking Status: Never smoker Alcohol History Alcohol Intake: Never Domestic Abuse History Do You Feel Safe at Home: Yes Review of Systems Report any current symptoms Only answer those that you have currently: Past Medical History Past Medical History Have you ever been diagnosed with any of the following: Neurological Problems Seizures: No Cardiology Problems Congestive Heart Failure: No Varicose Veins: Yes Respiratory Problems Chronic Obstructive Pulmonary Disease (COPD): No Asthma: No Stomache/Intestinal Problems Hemorrhoids: Yes Obesity: Yes Genital/Urinary Problems Renal Disease: No Endocrine Problems Diabetes Mellitus Type 1: No Diabetes Mellitus Type 2: No Blood Problems Anemia: No Sickle Cell Disease: No Other Problems Hospitalization: Yes (surgery) Autoimmune Disease: Yes Shingles: Yes Blood Transfusions: No Blood Transfusion Reaction: No Anesthesia Reactions: No Radiation Therapy: Yes Chicken Pox: Yes Measles: Yes Cancer: Yes (Lymphoma 2022)
== END 2025-03-02 15:44 | disposition home or self-care (01) ==
LOC: HODSRG 14:26
PROVIDERS: PCP Nurse Practitioner Family; Referring Provider Nurse Practitioner Family; Supervising Provider Surgery; Visit Provider Surgery
DX: L59.8 Other specified disorders of the skin and subcutaneous tissue related to radiation (principal)
CPT/HCPCS: 99213; G0463

== ENCOUNTER → 2025-04-17 | Outpatient (CLI) | payer OTHER, SELFPAY ==
[2025-04-17 17:22] LABS: Misc Send Out* See Sep Rpt
[2025-04-17 17:59] LABS: Basophils # (Auto) 0.1 Thou/mm3 (0.0-0.2); Basophils % (Auto) 1 % (0-2.5); Eosinophils # (Auto) 0.3 Thou/mm3 (0.0-0.5); Eosinophils % (Auto) 3 % (0-10); Hematocrit 42.4 % (41.0-53.0); Hemoglobin 14.1 g/dL (13.5-16.0); Immature Granulocytes Auto 0.03 Thou/mm3 (0.00-0.00); Lymphocytes # (Auto) 1.6 Thou/mm3 (1.0-4.8); Lymphocytes % (Auto) 19 % (10-50); Mean Corpuscular HGB Conc 33.3 g/dl (31.0-37.0); Mean Corpuscular Hemoglobin 29.2 pg (25.0-35.0); Mean Corpuscular Volume 88 fL (80-100); Monocytes # (Auto) 0.6 Thou/mm3 (0.0-0.8); Monocytes % (Auto) 7 % (0-12); Neutrophils # (Auto) 6.0 Thou/mm3 (1.8-7.7); Neutrophils % (Auto) 70 % (37-80); Nucleated Red Blood Cell # 0.00 Thou/mm3 (0.00-0.00); Nucleated Red Blood Cell % 0 /100 WBC (0); Platelet Count 216 Thou/mm3 (140-440); RDW Standard Deviation 43.4 fL (35.1-43.9); Red Blood Count 4.83 Miln/mm3 (4.50-5.90); White Blood Count 8.6 Thou/mm3 (3.8-10.6)
[2025-04-17 18:10] LABS: Iron 42 mcg/dL (65-175); Percent Iron Saturation 12 % (20-55); Total Iron Binding Capacity 332 mcg/dL (250-425); Unsaturated Iron Binding 290 (225-295)
== END | disposition home or self-care (01) ==
LOC: COPL 17:06
PROVIDERS: PCP Nurse Practitioner Family; Referring Provider Nurse Practitioner Family; Visit Provider Nurse Practitioner Family
DX: D50.9 Iron deficiency anemia, unspecified (principal)
CPT/HCPCS: 36415; 83540; 83550; 85025

== ENCOUNTER → 2025-06-02 | Outpatient (CLI) | payer OTHER, SELFPAY ==
[2025-06-02 08:19] LABS: Collection Type, Urine Clean Catch; Squamous Epithelial Cell,Urine 0 /hpf (0-5)
[2025-06-02 08:48] LABS: Bilirubin,Urine Negative (Negative); Blood,Urine Negative (Negative); Clarity,Urine Clear (Clear/Hazy); Color,Urine Lt-Yellow (Lt Yel-Yel); Culture Indicated,Urine Not Indicated; Glucose, Urine Negative (Negative); Ketones,Urine Negative (Negative); Leukocyte Esterase,Urine Negative (Negative); Nitrite,Urine Negative (Negative); PH,Urine 7.0 (5.0-7.0); Protein,Urine Negative (Neg - Trace); RBC,Urine 2 /hpf (0-3); Specific Gravity,Urine 1.013 (1.001-1.035); Urobilinogen,Urine Negative mg/dL (0.0-1.0); WBC,Urine < 1 /hpf (0-5)
[2025-06-02 08:52] LABS: Glucose Estimated Average 103 mg/dL (80-131); Hemoglobin A1C 5.2 % Hgb (4.8-6.0)
[2025-06-02 09:00] LABS: Cardiac Risk Estimate 4.2 RATIO (4.0-6.7); Cholesterol 161 mg/dL (132-200); HDL Cholesterol 38 mg/dL (40-60); LDL Cholesterol,Calculated 83 mg/dL (0-130); Magnesium 1.9 mg/dL (1.6-2.6); Thyroid Stimulating Hormone 0.94 uIU/mL (0.55-4.78); Triglycerides 200 mg/dL (30-150)
[2025-06-02 09:01] LABS: Prostate Specific Antigen 0.11 ng/mL (0-4.00)
[2025-06-02 09:07] LABS: Vitamin D 25 Hydroxy Total 45.9 ng/mL (7.3-40.2)
== END | disposition home or self-care (01) ==
LOC: COPL 07:31
PROVIDERS: PCP Family Medicine; Referring Provider Nurse Practitioner Family; Visit Provider Nurse Practitioner Family
DX: Z00.00 Encounter for general adult medical examination without abnormal findings (principal); Z98.84 Bariatric surgery status
CPT/HCPCS: 36415; 80061; 81001; 82306; 83036; 83735; 84153; 84443